=== PATIENT | male | born 1935 | race Caucasian/White ===

== ENCOUNTER 2022-06-29 16:26 | Inpatient (IN) ==
[2022-06-29] MEDS ORDERED: ALBUTEROL 2.5 MG/3 ML NEB RESP TX STA (17:28)
[2022-06-29] MEDS ORDERED: methylPREDNISolone SOD SUC 40 MG/1 ML VIAL IV STA (17:39)
[2022-06-29 17:57] LABS: Basophils # 0.1 10*3/uL (0.0-0.2); Basophils % 0.7 % (0.0-0.8); Eosinophils # 0.3 10*3/uL (0.0-0.87); Eosinophils % 2.6 % (0.00-10.9); Hemoglobin 14.5 GM/DL (14.0-18.0); Immature Granulocytes % 0.3 %; Immature Granulocytes Absolute 0.03 #; Lymphocytes # 1.7 10*3/uL (1.4-4.0); Mean Corpuscular Volume 82.6 FL (87-102); Mean Platelet Volume 10.6 FL (9.6-12.0); Monocytes # 0.7 10*3/uL (0.11-0.8); Monocytes % 6.7 % (1.7-12.7); Neutrophils % 72.7 % (38.7-73.9); Platelet Count 217 T/CUMM (130-400); Red Blood Count 5.33 MC/CUMM (3.8-5.5); Red Cell Distribution Width 15.6 % (9.3-17.3)
[2022-06-29 18:00] LABS: Arterial Base Excess iSTAT -6 MMOL/L (-2.5-2.5); Arterial Bicarbonate iSTAT 17.5 MMOL/L (20-26); Arterial O2 Saturation iSTAT 94 % (95-100); Arterial PCO2 iSTAT 29 MM HG (35-48); Arterial PO2 iSTAT 68 MM HG (80-95); Arterial Total CO2 iSTAT 18 MMO/L (23-27); Arterial pH iSTAT 7.392 (7.35-7.45)
[2022-06-29 18:17] LABS: Albumin 3.6 G/DL (3.4-5.0); Bilirubin,Total 1.1 MG/DL (0.20-1.00); Calcium 8.8 MG/DL (8.5-10.1); Osmolality,Calculated 277.5 MOS/KG (273-304); Potassium 3.7 MMOL/L (3.5-5.1); Total Protein 7.5 G/DL (6.4-8.2)
[2022-06-29 18:20] LABS: Platelet Estimate Adequate
[2022-06-29] MEDS ORDERED: cefTRIAXone 1,000 MG in SODIUM CHLORIDE 0.9% 100 ML IV STA (18:34)
[2022-06-29] MEDS ORDERED: AZITHROMYCIN INJ 500 MG in SODIUM CHLORIDE 0.9% 250 ML IV STA (18:34)
[2022-06-29] MEDS ORDERED: FUROSEMIDE 40 MG/4 ML VIAL IV STA (18:59)
[2022-06-29] MEDS ORDERED: ALBUTEROL 2.5 MG/3 ML NEB RESP TX PRN (21:20)
[2022-06-29] MEDS ORDERED: LOPERAMIDE 2 MG CAPSULE PO PRN (22:13)
[2022-06-29] MEDS: HEPARIN 5,000 UNIT/1 ML VIAL SUBCUT SCH (23:08)
[2022-06-29] MEDS: METOPROLOL TARTRATE 25 MG TABLET PO SCH (23:08)
[2022-06-30] MEDS: ALBUTEROL/IPRATROPIUM 3 ML NEB RESP TX SCH ×4 (01:50→20:09)
[2022-06-30] MEDS: methylPREDNISolone SOD SUC 40 MG/1 ML VIAL IV SCH ×3 (02:55→17:46)
[2022-06-30] MEDS: FUROSEMIDE 40 MG/4 ML VIAL IV SCH ×3 (02:55→17:46)
[2022-06-30 03:50] LABS: Basophils % 0.1 % (0.0-0.8); Immature Granulocytes % 0.5 %; Immature Granulocytes Absolute 0.07 #; Lymphocytes # 0.7 10*3/uL (1.4-4.0); Lymphocytes % 4.9 % (21.2-54.2); Mean Corpuscular HGB Conc 32.5 GM/DL (32-36); Mean Corpuscular Volume 83.2 FL (87-102); Mean Platelet Volume 10.4 FL (9.6-12.0); Monocytes # 0.3 10*3/uL (0.11-0.8); Monocytes % 1.8 % (1.7-12.7); Neutrophils % 92.7 % (38.7-73.9); Platelet Count 199 T/CUMM (130-400); Red Blood Count 4.81 MC/CUMM (3.8-5.5); Red Cell Distribution Width 15.6 % (9.3-17.3); White Blood Count 14.3 T/CUMM (4-12)
[2022-06-30 04:10] LABS: Lymphocytes 1 % (20-55); Platelet Estimate Adequate; Total Cells Counted 100
[2022-06-30 04:19] LABS: Calcium 8.7 MG/DL (8.5-10.1); Osmolality,Calculated 278.7 MOS/KG (273-304); Potassium 4.1 MMOL/L (3.5-5.1); Thyroid Stimulating Hormone 4.48 uIU/ml (0.358-3.74)
[2022-06-30] MEDS: HEPARIN 5,000 UNIT/1 ML VIAL SUBCUT SCH ×3 (06:18→21:40)
[2022-06-30] MEDS ORDERED: MELOXICAM 7.5 MG TABLET PO SCH (09:00)
[2022-06-30] MEDS: METOPROLOL TARTRATE 25 MG TABLET PO SCH ×2 (11:13→21:00)
[2022-06-30] MEDS: amLODIPine 5 MG TABLET PO SCH (11:13)
[2022-06-30] MEDS: PANTOPRAZOLE 40 MG TABLET PO SCH (11:13)
[2022-06-30] MEDS: methIMAzole 5 MG TABLET PO SCH (11:14)
[2022-06-30] MEDS: SERTRALINE 25 MG TABLET PO SCH (11:14)
[2022-06-30] MEDS: AZITHROMYCIN 250 MG TABLET PO SCH (17:46)
[2022-06-30] MEDS ORDERED: cefTRIAXone 1,000 MG in SODIUM CHLORIDE 0.9% 100 ML IV SCH (18:00)
[2022-06-30] MEDS ORDERED: POLYETHYLENE GLYCOL POWDER 17 GM PACK PO PRN (19:11)
[2022-06-30] MEDS: DOCUSATE SODIUM 100 MG CAPSULE PO SCH (21:40)
[2022-07-01] MEDS: ALBUTEROL/IPRATROPIUM 3 ML NEB RESP TX SCH ×5 (00:30→23:41)
[2022-07-01] MEDS: FUROSEMIDE 40 MG/4 ML VIAL IV SCH ×2 (01:45→10:36)
[2022-07-01] MEDS: methylPREDNISolone SOD SUC 40 MG/1 ML VIAL IV SCH ×2 (01:50→10:37)
[2022-07-01] MEDS ORDERED: PHENOL 1.4% THROAT SPRAY 177 ML BOTTLE PO PRN (02:20)
[2022-07-01] MEDS: HEPARIN 5,000 UNIT/1 ML VIAL SUBCUT SCH (05:33)
[2022-07-01 05:58] LABS: Basophils % 0.1 % (0.0-0.8); Hemoglobin 13.1 GM/DL (14.0-18.0); Immature Granulocytes % 0.8 %; Immature Granulocytes Absolute 0.11 #; Lymphocytes # 0.9 10*3/uL (1.4-4.0); Lymphocytes % 5.9 % (21.2-54.2); Mean Corpuscular HGB Conc 32.8 GM/DL (32-36); Mean Corpuscular Volume 83.5 FL (87-102); Mean Platelet Volume 10.7 FL (9.6-12.0); Monocytes # 0.3 10*3/uL (0.11-0.8); Monocytes % 1.8 % (1.7-12.7); Neutrophils % 91.4 % (38.7-73.9); Platelet Count 206 T/CUMM (130-400); Red Blood Count 4.79 MC/CUMM (3.8-5.5); Red Cell Distribution Width 15.4 % (9.3-17.3); White Blood Count 14.3 T/CUMM (4-12)
[2022-07-01 06:19] LABS: Calcium 8.9 MG/DL (8.5-10.1); Osmolality,Calculated 276.2 MOS/KG (273-304); Potassium 3.5 MMOL/L (3.5-5.1)
[2022-07-01 06:25] LABS: Lymphocytes 7 % (20-55); Myelocytes 1 %; Total Cells Counted 100
[2022-07-01 06:26] LABS: Platelet Estimate Normal
[2022-07-01] MEDS: SERTRALINE 25 MG TABLET PO SCH (09:24)
[2022-07-01] MEDS: amLODIPine 5 MG TABLET PO SCH (09:24)
[2022-07-01] MEDS: methIMAzole 5 MG TABLET PO SCH (09:24)
[2022-07-01] MEDS: PANTOPRAZOLE 40 MG TABLET PO SCH (09:24)
[2022-07-01] MEDS: METOPROLOL TARTRATE 25 MG TABLET PO SCH ×2 (09:24→22:16)
[2022-07-01] MEDS: DOCUSATE SODIUM 100 MG CAPSULE PO SCH ×2 (09:25→21:39)
[2022-07-01] MEDS ORDERED: ENOXAPARIN 40 MG/0.4 ML SYRINGE SUBCUT SCH (10:30)
[2022-07-01] MEDS ORDERED: methylPREDNISolone SOD SUC 40 MG/1 ML VIAL IV SCH (10:30)
[2022-07-01] MEDS: ENOXAPARIN 30 MG/0.3 ML SYRINGE SUBCUT SCH (10:46)
[2022-07-01] MEDS: AZITHROMYCIN 250 MG TABLET PO SCH (17:54)
[2022-07-02 06:24] LABS: Basophils % 0.1 % (0.0-0.8); Hematocrit 37.8 VOL% (42.0-52.0); Hemoglobin 12.2 GM/DL (14.0-18.0); Immature Granulocytes % 0.8 %; Lymphocytes # 0.4 10*3/uL (1.4-4.0); Lymphocytes % 3.2 % (21.2-54.2); Mean Corpuscular HGB Conc 32.3 GM/DL (32-36); Mean Corpuscular Volume 85.1 FL (87-102); Mean Platelet Volume 10.5 FL (9.6-12.0); Monocytes # 0.4 10*3/uL (0.11-0.8); Monocytes % 2.8 % (1.7-12.7); Neutrophils % 93.1 % (38.7-73.9); Platelet Count 178 T/CUMM (130-400); Red Blood Count 4.44 MC/CUMM (3.8-5.5); Red Cell Distribution Width 15.2 % (9.3-17.3)
[2022-07-02 06:42] LABS: Calcium 8.3 MG/DL (8.5-10.1); Osmolality,Calculated 280.2 MOS/KG (273-304); Potassium 3.5 MMOL/L (3.5-5.1)
[2022-07-02 07:11] LABS: Band Neutrophils 2 % (0-10); Lymphocytes 6 % (20-55); Total Cells Counted 100
[2022-07-02 07:12] LABS: Anisocytosis Slight; Burr Cells Few
[2022-07-02] MEDS: ALBUTEROL/IPRATROPIUM 3 ML NEB RESP TX SCH ×3 (07:44→19:12)
[2022-07-02] MEDS: methIMAzole 5 MG TABLET PO SCH (08:20)
[2022-07-02] MEDS: LEVOFLOXACIN 250 MG TABLET PO SCH (08:20)
[2022-07-02] MEDS: METOPROLOL TARTRATE 25 MG TABLET PO SCH ×2 (08:20→20:19)
[2022-07-02] MEDS: DOCUSATE SODIUM 100 MG CAPSULE PO SCH ×2 (08:20→20:20)
[2022-07-02] MEDS: predniSONE 20 MG TABLET PO SCH (08:20)
[2022-07-02] MEDS: amLODIPine 5 MG TABLET PO SCH (08:21)
[2022-07-02] MEDS: PANTOPRAZOLE 40 MG TABLET PO SCH (08:21)
[2022-07-02] MEDS: SERTRALINE 25 MG TABLET PO SCH (08:21)
[2022-07-02] MEDS ORDERED: FUROSEMIDE 20 MG TABLET PO SCH (09:00)
[2022-07-02] MEDS: ENOXAPARIN 30 MG/0.3 ML SYRINGE SUBCUT SCH (11:00)
[2022-07-02] MEDS: POLYETHYLENE GLYCOL POWDER 17 GM PACK PO SCH (20:20)
[2022-07-02] MEDS: SODIUM CHLORIDE 0.9% 1,000 ML IV SCH (20:29)
[2022-07-03] MEDS: ALBUTEROL/IPRATROPIUM 3 ML NEB RESP TX SCH ×3 (00:03→12:52)
[2022-07-03 06:42] LABS: Hematocrit 41.9 VOL% (42.0-52.0); Hemoglobin 13.5 GM/DL (14.0-18.0); Immature Granulocytes % 0.8 %; Lymphocytes # 0.9 10*3/uL (1.4-4.0); Lymphocytes % 7.4 % (21.2-54.2); Mean Corpuscular HGB Conc 32.2 GM/DL (32-36); Mean Corpuscular Volume 84.1 FL (87-102); Mean Platelet Volume 11.2 FL (9.6-12.0); Monocytes # 0.8 10*3/uL (0.11-0.8); Monocytes % 6.4 % (1.7-12.7); Neutrophils % 85.4 % (38.7-73.9); Platelet Count 201 T/CUMM (130-400); Red Blood Count 4.98 MC/CUMM (3.8-5.5); Red Cell Distribution Width 15.2 % (9.3-17.3); White Blood Count 11.9 T/CUMM (4-12)
[2022-07-03 06:57] LABS: Calcium 8.3 MG/DL (8.5-10.1); Osmolality,Calculated 285.5 MOS/KG (273-304); Potassium 3.5 MMOL/L (3.5-5.1)
[2022-07-03 07:50] LABS: Free T4 (Free Thyroxine) 0.7 NG/DL (0.76-1.46)
[2022-07-03] MEDS: METOPROLOL TARTRATE 25 MG TABLET PO SCH ×2 (08:31→20:46)
[2022-07-03] MEDS: SERTRALINE 25 MG TABLET PO SCH (08:31)
[2022-07-03] MEDS: DOCUSATE SODIUM 100 MG CAPSULE PO SCH (08:31)
[2022-07-03] MEDS: methIMAzole 5 MG TABLET PO SCH ×2 (08:31→15:55)
[2022-07-03] MEDS: predniSONE 20 MG TABLET PO SCH (08:31)
[2022-07-03] MEDS: LINACLOTIDE 145 MCG CAPSULE PO SCH (08:32)
[2022-07-03] MEDS: POLYETHYLENE GLYCOL POWDER 17 GM PACK PO SCH (08:32)
[2022-07-03] MEDS: LEVOFLOXACIN 250 MG TABLET PO SCH (08:32)
[2022-07-03] MEDS: ENOXAPARIN 30 MG/0.3 ML SYRINGE SUBCUT SCH (10:33)
[2022-07-03] MEDS: SODIUM CHLORIDE 0.9% 1,000 ML IV SCH ×2 (17:48→20:47)
[2022-07-04] MEDS: ALBUTEROL/IPRATROPIUM 3 ML NEB RESP TX SCH ×3 (07:12→19:48)
[2022-07-04] MEDS: METOPROLOL TARTRATE 25 MG TABLET PO SCH ×2 (09:23→21:51)
[2022-07-04] MEDS: POLYETHYLENE GLYCOL POWDER 17 GM PACK PO SCH (09:23)
[2022-07-04] MEDS: SERTRALINE 25 MG TABLET PO SCH (09:23)
[2022-07-04] MEDS: predniSONE 20 MG TABLET PO SCH (09:23)
[2022-07-04] MEDS: LEVOFLOXACIN 250 MG TABLET PO SCH (09:23)
[2022-07-04] MEDS: LINACLOTIDE 145 MCG CAPSULE PO SCH (10:24)
[2022-07-04] MEDS: ENOXAPARIN 30 MG/0.3 ML SYRINGE SUBCUT SCH (11:33)
[2022-07-04] MEDS ORDERED: TUBERCULIN SKIN TEST 0.1 ML SYRINGE INTRADERM ONE (15:37)
[2022-07-05] MEDS: ALBUTEROL/IPRATROPIUM 3 ML NEB RESP TX SCH ×4 (00:20→19:15)
[2022-07-05 05:29] LABS: Basophils % 0.2 % (0.0-0.8); Eosinophils # 0.1 10*3/uL (0.0-0.87); Eosinophils % 1.5 % (0.00-10.9); Hematocrit 41.3 VOL% (42.0-52.0); Hemoglobin 13.4 GM/DL (14.0-18.0); Immature Granulocytes % 1.1 %; Immature Granulocytes Absolute 0.09 #; Lymphocytes # 1.9 10*3/uL (1.4-4.0); Lymphocytes % 23.2 % (21.2-54.2); Mean Corpuscular HGB Conc 32.4 GM/DL (32-36); Mean Corpuscular Volume 83.6 FL (87-102); Mean Platelet Volume 10.4 FL (9.6-12.0); Monocytes # 0.6 10*3/uL (0.11-0.8); Monocytes % 6.8 % (1.7-12.7); Neutrophils % 67.2 % (38.7-73.9); Platelet Count 188 T/CUMM (130-400); Red Blood Count 4.94 MC/CUMM (3.8-5.5); White Blood Count 8.1 T/CUMM (4-12)
[2022-07-05 05:47] LABS: Calcium 8.2 MG/DL (8.5-10.1); Osmolality,Calculated 275.8 MOS/KG (273-304); Potassium 3.7 MMOL/L (3.5-5.1)
[2022-07-05] MEDS: LINACLOTIDE 145 MCG CAPSULE PO SCH (08:01)
[2022-07-05] MEDS: LEVOFLOXACIN 250 MG TABLET PO SCH (08:01)
[2022-07-05] MEDS: predniSONE 20 MG TABLET PO SCH (08:02)
[2022-07-05] MEDS: POLYETHYLENE GLYCOL POWDER 17 GM PACK PO SCH (08:02)
[2022-07-05] MEDS: SERTRALINE 25 MG TABLET PO SCH (08:02)
[2022-07-05] MEDS: METOPROLOL TARTRATE 25 MG TABLET PO SCH ×2 (08:02→20:27)
[2022-07-05] MEDS: ENOXAPARIN 30 MG/0.3 ML SYRINGE SUBCUT SCH (11:04)
[2022-07-05] MEDS: methIMAzole 5 MG TABLET PO SCH (14:33)
[2022-07-06] MEDS: ALBUTEROL/IPRATROPIUM 3 ML NEB RESP TX SCH ×4 (00:30→19:06)
[2022-07-06 05:57] LABS: Basophils % 0.2 % (0.0-0.8); Eosinophils # 0.4 10*3/uL (0.0-0.87); Eosinophils % 3.6 % (0.00-10.9); Hematocrit 42.9 VOL% (42.0-52.0); Hemoglobin 13.8 GM/DL (14.0-18.0); Lymphocytes # 2.3 10*3/uL (1.4-4.0); Lymphocytes % 22.8 % (21.2-54.2); Mean Corpuscular HGB Conc 32.2 GM/DL (32-36); Mean Corpuscular Volume 83.8 FL (87-102); Mean Platelet Volume 10.3 FL (9.6-12.0); Monocytes # 0.7 10*3/uL (0.11-0.8); Monocytes % 7.1 % (1.7-12.7); Neutrophils % 65.3 % (38.7-73.9); Platelet Count 203 T/CUMM (130-400); Red Blood Count 5.12 MC/CUMM (3.8-5.5); Red Cell Distribution Width 15.1 % (9.3-17.3)
[2022-07-06 06:20] LABS: Calcium 8.4 MG/DL (8.5-10.1); Osmolality,Calculated 277.7 MOS/KG (273-304); Potassium 3.7 MMOL/L (3.5-5.1)
[2022-07-06] MEDS: POLYETHYLENE GLYCOL POWDER 17 GM PACK PO SCH (10:47)
[2022-07-06] MEDS: SERTRALINE 25 MG TABLET PO SCH (10:48)
[2022-07-06] MEDS: predniSONE 20 MG TABLET PO SCH (10:49)
[2022-07-06] MEDS: METOPROLOL TARTRATE 25 MG TABLET PO SCH (10:49)
[2022-07-06] MEDS: LINACLOTIDE 145 MCG CAPSULE PO SCH (10:49)
[2022-07-06] MEDS: ENOXAPARIN 30 MG/0.3 ML SYRINGE SUBCUT SCH (10:49)
[2022-07-06] MEDS: LEVOFLOXACIN 250 MG TABLET PO SCH (10:49)
[2022-07-06] MEDS: carvediloL 3.125 MG TABLET PO SCH (22:15)
[2022-07-07] MEDS: ALBUTEROL/IPRATROPIUM 3 ML NEB RESP TX SCH ×5 (00:19→19:27)
[2022-07-07 05:53] LABS: Basophils % 0.2 % (0.0-0.8); Eosinophils # 0.2 10*3/uL (0.0-0.87); Eosinophils % 1.7 % (0.00-10.9); Hematocrit 41.3 VOL% (42.0-52.0); Hemoglobin 13.3 GM/DL (14.0-18.0); Immature Granulocytes % 0.8 %; Immature Granulocytes Absolute 0.09 #; Lymphocytes # 1.9 10*3/uL (1.4-4.0); Lymphocytes % 17.3 % (21.2-54.2); Mean Corpuscular HGB Conc 32.2 GM/DL (32-36); Mean Corpuscular Volume 83.8 FL (87-102); Mean Platelet Volume 10.2 FL (9.6-12.0); Monocytes # 0.7 10*3/uL (0.11-0.8); Platelet Count 206 T/CUMM (130-400); Red Blood Count 4.93 MC/CUMM (3.8-5.5); Red Cell Distribution Width 15.1 % (9.3-17.3)
[2022-07-07 06:15] LABS: Calcium 8.6 MG/DL (8.5-10.1); Osmolality,Calculated 280.5 MOS/KG (273-304); Potassium 3.7 MMOL/L (3.5-5.1)
[2022-07-07] MEDS: LINACLOTIDE 145 MCG CAPSULE PO SCH (08:28)
[2022-07-07] MEDS: carvediloL 3.125 MG TABLET PO SCH ×2 (09:44→21:00)
[2022-07-07] MEDS: SERTRALINE 25 MG TABLET PO SCH (09:44)
[2022-07-07] MEDS: POLYETHYLENE GLYCOL POWDER 17 GM PACK PO SCH (09:45)
[2022-07-07] MEDS: ENOXAPARIN 30 MG/0.3 ML SYRINGE SUBCUT SCH (09:45)
[2022-07-07] MEDS ORDERED: PANTOPRAZOLE 40 MG VIAL IV SCH (12:30)
[2022-07-07] MEDS: methIMAzole 5 MG TABLET PO SCH (16:18)
[2022-07-08] MEDS: ALBUTEROL/IPRATROPIUM 3 ML NEB RESP TX SCH ×4 (00:05→19:09)
[2022-07-08 05:27] LABS: Basophils % 0.1 % (0.0-0.8); Eosinophils # 0.5 10*3/uL (0.0-0.87); Eosinophils % 5.3 % (0.00-10.9); Hematocrit 39.3 VOL% (42.0-52.0); Hemoglobin 12.7 GM/DL (14.0-18.0); Immature Granulocytes % 0.9 %; Immature Granulocytes Absolute 0.08 #; Lymphocytes # 2.4 10*3/uL (1.4-4.0); Lymphocytes % 26.3 % (21.2-54.2); Mean Corpuscular HGB Conc 32.3 GM/DL (32-36); Mean Corpuscular Volume 84.5 FL (87-102); Mean Platelet Volume 10.6 FL (9.6-12.0); Monocytes # 0.8 10*3/uL (0.11-0.8); Monocytes % 8.4 % (1.7-12.7); Platelet Count 191 T/CUMM (130-400); Red Blood Count 4.65 MC/CUMM (3.8-5.5); Red Cell Distribution Width 15.2 % (9.3-17.3); White Blood Count 9.1 T/CUMM (4-12)
[2022-07-08 05:45] LABS: Calcium 8.3 MG/DL (8.5-10.1); Osmolality,Calculated 281.4 MOS/KG (273-304); Potassium 3.9 MMOL/L (3.5-5.1)
[2022-07-08] MEDS: POLYETHYLENE GLYCOL POWDER 17 GM PACK PO SCH (09:48)
[2022-07-08] MEDS: SERTRALINE 25 MG TABLET PO SCH (09:48)
[2022-07-08] MEDS: carvediloL 3.125 MG TABLET PO SCH ×2 (09:48→22:21)
[2022-07-08] MEDS: PANTOPRAZOLE 40 MG TABLET PO SCH ×2 (09:48→19:20)
[2022-07-08] MEDS: LINACLOTIDE 145 MCG CAPSULE PO SCH (09:48)
[2022-07-09] MEDS: ALBUTEROL/IPRATROPIUM 3 ML NEB RESP TX SCH ×4 (00:57→19:26)
[2022-07-09 04:54] LABS: Eosinophils # 0.4 10*3/uL (0.0-0.87); Eosinophils % 4.3 % (0.00-10.9); Hematocrit 38.1 VOL% (42.0-52.0); Hemoglobin 12.2 GM/DL (14.0-18.0); Immature Granulocytes % 0.8 %; Immature Granulocytes Absolute 0.07 #; Lymphocytes # 1.9 10*3/uL (1.4-4.0); Lymphocytes % 22.1 % (21.2-54.2); Mean Corpuscular Volume 84.5 FL (87-102); Mean Platelet Volume 10.8 FL (9.6-12.0); Monocytes # 0.9 10*3/uL (0.11-0.8); Monocytes % 10.5 % (1.7-12.7); Neutrophils % 62.3 % (38.7-73.9); Platelet Count 202 T/CUMM (130-400); Red Blood Count 4.51 MC/CUMM (3.8-5.5); White Blood Count 8.5 T/CUMM (4-12)
[2022-07-09 05:11] LABS: Calcium 8.4 MG/DL (8.5-10.1); Osmolality,Calculated 278.5 MOS/KG (273-304)
[2022-07-09] MEDS: LINACLOTIDE 145 MCG CAPSULE PO SCH (06:57)
[2022-07-09] MEDS: PANTOPRAZOLE 40 MG TABLET PO SCH ×2 (06:57→18:06)
[2022-07-09] MEDS: POLYETHYLENE GLYCOL POWDER 17 GM PACK PO SCH (09:11)
[2022-07-09] MEDS: SERTRALINE 25 MG TABLET PO SCH (09:11)
[2022-07-09] MEDS: carvediloL 3.125 MG TABLET PO SCH ×2 (09:11→20:35)
[2022-07-09] MEDS: methIMAzole 5 MG TABLET PO SCH (18:06)
[2022-07-10] MEDS: ALBUTEROL/IPRATROPIUM 3 ML NEB RESP TX SCH ×4 (00:08→19:14)
[2022-07-10] MEDS: PANTOPRAZOLE 40 MG TABLET PO SCH ×2 (08:59→20:58)
[2022-07-10] MEDS: LINACLOTIDE 145 MCG CAPSULE PO SCH (09:00)
[2022-07-10] MEDS: POLYETHYLENE GLYCOL POWDER 17 GM PACK PO SCH (09:00)
[2022-07-10] MEDS: SERTRALINE 25 MG TABLET PO SCH (09:00)
[2022-07-10] MEDS: carvediloL 3.125 MG TABLET PO SCH ×2 (09:00→20:59)
[2022-07-11] MEDS: ALBUTEROL/IPRATROPIUM 3 ML NEB RESP TX SCH ×4 (01:24→19:25)
[2022-07-11] MEDS: LINACLOTIDE 145 MCG CAPSULE PO SCH (09:43)
[2022-07-11] MEDS: SERTRALINE 25 MG TABLET PO SCH (09:43)
[2022-07-11] MEDS: carvediloL 3.125 MG TABLET PO SCH ×2 (09:43→20:35)
[2022-07-11] MEDS: PANTOPRAZOLE 40 MG TABLET PO SCH ×2 (09:43→20:35)
[2022-07-11] MEDS: POLYETHYLENE GLYCOL POWDER 17 GM PACK PO SCH (09:44)
[2022-07-11] MEDS: methIMAzole 5 MG TABLET PO SCH (14:43)
[2022-07-12] MEDS: ALBUTEROL/IPRATROPIUM 3 ML NEB RESP TX SCH ×3 (00:17→14:00)
[2022-07-12 09:06] VITALS: BP 117/50
[2022-07-12] MEDS: POLYETHYLENE GLYCOL POWDER 17 GM PACK PO SCH (09:43)
[2022-07-12] MEDS: LINACLOTIDE 145 MCG CAPSULE PO SCH (09:43)
[2022-07-12] MEDS: PANTOPRAZOLE 40 MG TABLET PO SCH (09:45)
[2022-07-12] MEDS: SERTRALINE 25 MG TABLET PO SCH (09:45)
[2022-07-12] MEDS: carvediloL 3.125 MG TABLET PO SCH (09:46)
== END 2022-07-12 14:06 | disposition home health service (06) | DRG 189 ==
LOC: EDUNIT# → EDBD → N.ED 16:26 → SUATTDRO 21:20 → N.EDINP 21:20 → N.ICU 21:46 → N.TELEN 07-03 16:49
PROVIDERS: ADMIT Family Medicine; ATTEND Emergency Medicine

== ENCOUNTER 2022-08-15 13:22 | Inpatient (IN) ==
[2022-08-15] MEDS ORDERED: ONDANSETRON 4 MG/2 ML VIAL IV STA (13:55)
[2022-08-15] MEDS ORDERED: HYDROmorphone 1 MG/1 ML SYRINGE IV STA (13:55)
[2022-08-15 14:52] LABS: Basophils % 0.2 % (0.0-0.8); Eosinophils # 0.1 10*3/uL (0.0-0.87); Eosinophils % 0.5 % (0.00-10.9); Hematocrit 44.1 VOL% (42.0-52.0); Hemoglobin 14.5 GM/DL (14.0-18.0); Immature Granulocytes % 0.8 %; Immature Granulocytes Absolute 0.13 #; Lymphocytes # 1.9 10*3/uL (1.4-4.0); Lymphocytes % 12.1 % (21.2-54.2); Mean Corpuscular HGB Conc 32.9 GM/DL (32-36); Mean Corpuscular Volume 82.4 FL (87-102); Mean Platelet Volume 10.6 FL (9.6-12.0); Monocytes # 0.7 10*3/uL (0.11-0.8); Monocytes % 4.5 % (1.7-12.7); Neutrophils % 81.9 % (38.7-73.9); Platelet Count 180 T/CUMM (130-400); Red Blood Count 5.35 MC/CUMM (3.8-5.5); Red Cell Distribution Width 15.4 % (9.3-17.3); White Blood Count 15.5 T/CUMM (4-12)
[2022-08-15 15:10] LABS: Albumin 3.3 G/DL (3.4-5.0); Bilirubin,Total 0.8 MG/DL (0.20-1.00); Calcium 9.1 MG/DL (8.5-10.1); Osmolality,Calculated 274.8 MOS/KG (273-304); Potassium 4.2 MMOL/L (3.5-5.1); Total Protein 7.5 G/DL (6.4-8.2)
[2022-08-15 15:15] LABS: INR 0.9; PT Patient Result 10.5 SECS (10.1-12.1); Partial Thromboplastin Time 23.1 SECS (23.7-32.9)
[2022-08-15] MEDS ORDERED: ACETAMINOPHEN 325 MG TABLET PO PRN (15:51)
[2022-08-15] MEDS ORDERED: ONDANSETRON 4 MG/2 ML VIAL IV PRN (15:51)
[2022-08-15] MEDS ORDERED: SODIUM CHLORIDE 0.9% 1,000 ML IV SCH (16:00)
[2022-08-15] MEDS ORDERED: hydrALAZINE 20 MG/1 ML VIAL IV PRN (16:07)
[2022-08-15] MEDS: MORPHINE 2 MG/1 ML SYRINGE IV PRN ×2 (16:11→20:45)
[2022-08-15 18:25] LABS: Arterial Base Excess iSTAT -5 MMOL/L (-2.5-2.5); Arterial Bicarbonate iSTAT 18.8 MMOL/L (20-26); Arterial O2 Saturation iSTAT 77 % (95-100); Arterial PCO2 iSTAT 32 MM HG (35-48); Arterial PO2 iSTAT 42 MM HG (80-95); Arterial Total CO2 iSTAT 20 MMO/L (23-27); Arterial pH iSTAT 7.372 (7.35-7.45)
[2022-08-15] MEDS ORDERED: FUROSEMIDE 40 MG/4 ML VIAL IV ONE (19:09)
[2022-08-15] MEDS: ALBUTEROL/IPRATROPIUM 3 ML NEB RESP TX SCH ×2 (19:35→23:57)
[2022-08-15] MEDS: methylPREDNISolone SOD SUC 40 MG/1 ML VIAL IV SCH (20:30)
[2022-08-15] MEDS: ENOXAPARIN 60 MG/0.6 ML SYRINGE SUBCUT SCH (20:33)
[2022-08-15] MEDS: cefTRIAXone 1,000 MG in SODIUM CHLORIDE 0.9% 100 ML IV SCH (20:45)
[2022-08-16] MEDS: MORPHINE 2 MG/1 ML SYRINGE IV PRN ×2 (02:10→23:35)
[2022-08-16] MEDS: ALBUTEROL/IPRATROPIUM 3 ML NEB RESP TX SCH ×6 (02:36→23:50)
[2022-08-16 05:05] LABS: Basophils % 0.1 % (0.0-0.8); Eosinophils % 0.1 % (0.00-10.9); Hematocrit 46.2 VOL% (42.0-52.0); Hemoglobin 15.1 GM/DL (14.0-18.0); Immature Granulocytes % 0.6 %; Immature Granulocytes Absolute 0.06 #; Lymphocytes # 0.8 10*3/uL (1.4-4.0); Lymphocytes % 8.7 % (21.2-54.2); Mean Corpuscular HGB Conc 32.7 GM/DL (32-36); Mean Corpuscular Volume 84.3 FL (87-102); Mean Platelet Volume 10.8 FL (9.6-12.0); Monocytes # 0.1 10*3/uL (0.11-0.8); Neutrophils % 89.5 % (38.7-73.9); Platelet Count 190 T/CUMM (130-400); Red Blood Count 5.48 MC/CUMM (3.8-5.5); Red Cell Distribution Width 15.6 % (9.3-17.3); White Blood Count 9.7 T/CUMM (4-12)
[2022-08-16 05:26] LABS: Albumin 3.2 G/DL (3.4-5.0); Bilirubin,Total 0.6 MG/DL (0.20-1.00); Calcium 9.4 MG/DL (8.5-10.1); Osmolality,Calculated 280.8 MOS/KG (273-304); Potassium 4.7 MMOL/L (3.5-5.1); Total Protein 7.6 G/DL (6.4-8.2)
[2022-08-16] MEDS ORDERED: ROCURONIUM 50 MG/5 ML VIAL IV ONE (08:27)
[2022-08-16] MEDS ORDERED: LIDOCAINE 2% 5 ML VIAL ONE (08:27)
[2022-08-16] MEDS ORDERED: propofoL 200 MG/20 ML VIAL IV ONE ×2 (08:27→10:25)
[2022-08-16] MEDS ORDERED: fentaNYL 100 MCG/2 ML VIAL ONE (08:27)
[2022-08-16] MEDS ORDERED: KETAMINE 500 MG/10 ML VIAL ONE (08:27)
[2022-08-16] MEDS ORDERED: SEVOFLURANE 1 UNIT/15 MINUTE INH ONE (08:30)
[2022-08-16] MEDS ORDERED: ROPIVACAINE 0.5% 30 ML VIAL ONE (08:36)
[2022-08-16] MEDS ORDERED: DEXAMETHASONE 4 MG/1 ML VIAL ONE (08:36)
[2022-08-16] MEDS ORDERED: ceFAZolin 2,000 MG/50 ML DUPLEX IV ONE (08:56)
[2022-08-16] MEDS ORDERED: PANTOPRAZOLE 40 MG VIAL IV SCH (09:00)
[2022-08-16] MEDS ORDERED: LACTATED RINGERS 1,000 ML IV SCH (09:30)
[2022-08-16] MEDS ORDERED: BUPIVACAINE MPF 0.5% 30 ML VIAL ONE (09:40)
[2022-08-16] MEDS ORDERED: buprenorphine HCL 0.3 MG/ML VIAL ONE (09:40)
[2022-08-16] MEDS ORDERED: PHENYLEPHRINE 1 MG/10 ML SYRINGE IV ONE (10:25)
[2022-08-16] MEDS ORDERED: SODIUM CHLORIDE 0.9% 250 ML IV ONE ×2 (10:25→10:30)
[2022-08-16] MEDS ORDERED: TRANEXAMIC ACID 1,000 MG/10 ML VIAL ONE (10:27)
[2022-08-16] MEDS ORDERED: PHENYLEPHRINE 10 MG/1 ML VIAL IV ONE (10:30)
[2022-08-16] MEDS ORDERED: MAGNESIUM HYDROXIDE SUSP 30 ML UDCUP PO PRN (10:49)
[2022-08-16] MEDS ORDERED: BISACODYL 10 MG SUPP RECTAL PRN (10:49)
[2022-08-16] MEDS ORDERED: diphenhydrAMINE CAP 25 MG CAPSULE PO PRN (10:49)
[2022-08-16] MEDS ORDERED: LACTULOSE 20 GM/30 ML UDCUP PO PRN (10:49)
[2022-08-16] MEDS ORDERED: ALBUTEROL 2.5 MG/3 ML NEB RESP TX PRN (10:52)
[2022-08-16] MEDS ORDERED: LINACLOTIDE 145 MCG CAPSULE PO PRN (10:52)
[2022-08-16] MEDS ORDERED: PROMETHAZINE 25 MG TABLET PO PRN (10:52)
[2022-08-16] MEDS: methylPREDNISolone SOD SUC 40 MG/1 ML VIAL IV SCH ×2 (12:32→21:47)
[2022-08-16] MEDS: ENOXAPARIN 60 MG/0.6 ML SYRINGE SUBCUT SCH ×2 (12:32→21:52)
[2022-08-16] MEDS: CYPROHEPTADINE 4 MG TABLET PO SCH ×3 (13:06→21:52)
[2022-08-16] MEDS: ceFAZolin 2,000 MG/50 ML DUPLEX IV SCH ×2 (15:08→23:24)
[2022-08-16] MEDS: PANTOPRAZOLE 40 MG TABLET PO SCH (17:03)
[2022-08-16] MEDS: carvediloL 3.125 MG TABLET PO SCH (17:03)
[2022-08-16] MEDS ORDERED: ALBUTEROL 1.25 MG/3 ML NEB RESP TX SCH (21:00)
[2022-08-16] MEDS: TAMSULOSIN 0.4 MG CAPSULE PO SCH (21:44)
[2022-08-16] MEDS: cefTRIAXone 1,000 MG in SODIUM CHLORIDE 0.9% 100 ML IV SCH (21:51)
[2022-08-16] MEDS: DOCUSATE SODIUM 100 MG CAPSULE PO SCH (21:52)
[2022-08-17] MEDS: ALBUTEROL/IPRATROPIUM 3 ML NEB RESP TX SCH ×6 (02:55→23:25)
[2022-08-17] MEDS ORDERED: METOPROLOL TARTRATE 5 MG/5 ML VIAL IV ONE (04:45)
[2022-08-17 05:26] LABS: Calcium 9.1 MG/DL (8.5-10.1); Osmolality,Calculated 293.4 MOS/KG (273-304); Potassium 4.1 MMOL/L (3.5-5.1)
[2022-08-17 05:37] LABS: Basophils % 0.1 % (0.0-0.8); Hematocrit 41.2 VOL% (42.0-52.0); Hemoglobin 13.4 GM/DL (14.0-18.0); Immature Granulocytes % 0.5 %; Immature Granulocytes Absolute 0.07 #; Lymphocytes % 6.6 % (21.2-54.2); Mean Corpuscular HGB Conc 32.5 GM/DL (32-36); Mean Corpuscular Volume 86.4 FL (87-102); Mean Platelet Volume 11.3 FL (9.6-12.0); Monocytes # 0.3 10*3/uL (0.11-0.8); Monocytes % 2.1 % (1.7-12.7); Neutrophils % 90.7 % (38.7-73.9); Platelet Count 180 T/CUMM (130-400); Red Blood Count 4.77 MC/CUMM (3.8-5.5); Red Cell Distribution Width 16.3 % (9.3-17.3); White Blood Count 14.9 T/CUMM (4-12)
[2022-08-17 05:52] LABS: Lymphocytes 3 % (20-55); Total Cells Counted 100
[2022-08-17 05:53] LABS: Hypochromia Slight; Microcytosis 1+
[2022-08-17 05:55] LABS: Ovalocytes Slight
[2022-08-17 05:56] LABS: Platelet Estimate Adequate
[2022-08-17] MEDS ORDERED: SODIUM CHLORIDE 0.9% 1,000 ML IV SCH (08:00)
[2022-08-17] MEDS ORDERED: MELOXICAM 7.5 MG TABLET PO SCH (09:00)
[2022-08-17] MEDS ORDERED: CYANOCOBALAMIN 1000 MCG/1 ML VIAL IM SCH (09:00)
[2022-08-17] MEDS: carvediloL 3.125 MG TABLET PO SCH ×2 (10:10→17:15)
[2022-08-17] MEDS: DOCUSATE SODIUM 100 MG CAPSULE PO SCH ×2 (10:10→20:56)
[2022-08-17] MEDS: CYPROHEPTADINE 4 MG TABLET PO SCH ×4 (10:10→20:57)
[2022-08-17] MEDS: SERTRALINE 25 MG TABLET PO SCH (10:10)
[2022-08-17] MEDS: PANTOPRAZOLE 40 MG TABLET PO SCH ×2 (10:10→17:14)
[2022-08-17] MEDS: SODIUM BICARBONATE 650 MG TABLET PO SCH ×2 (10:10→20:57)
[2022-08-17] MEDS: POLYETHYLENE GLYCOL POWDER 17 GM PACK PO SCH (10:10)
[2022-08-17] MEDS: methylPREDNISolone SOD SUC 40 MG/1 ML VIAL IV SCH ×2 (11:08→20:55)
[2022-08-17] MEDS: MORPHINE 2 MG/1 ML SYRINGE IV PRN ×2 (11:08→15:23)
[2022-08-17] MEDS ORDERED: FUROSEMIDE 40 MG/4 ML VIAL IV ONE (15:00)
[2022-08-17] MEDS: AZITHROMYCIN INJ 500 MG in SODIUM CHLORIDE 0.9% 250 ML IV SCH (15:23)
[2022-08-17 16:23] LABS: Bilirubin,Urine Negative (Negative); Blood, Urine Moderate mg/dL (Negative); Glucose,Urine (UA) Negative (Negative); Ketones,Urine Negative (Negative); Nitrite,Urine Negative (Negative); Protein,Urine 30 mg/dL (Negative); Urine Appearance Clear (Clear); Urine Color Yellow (Yellow); Urine Specific Gravity 1.025 (1.001-1.035); Urine Urobilinogen 0.2 eU/dL (<2.0); Urine pH 5.5 (4.5-8.0)
[2022-08-17 16:27] LABS: Bacteria,Urine Occasional /HPF (Few); Hyaline Casts,Urine 5 /LPF (0-3); Mucus,Urine Occasional /LPF (Occasional); RBC,Urine 7 /HPF (0-4); Squamous Epithelial Cell,Urine Occasional /HPF (0-10)
[2022-08-17] MEDS: cefTRIAXone 1,000 MG in SODIUM CHLORIDE 0.9% 100 ML IV SCH (20:54)
[2022-08-17] MEDS: TAMSULOSIN 0.4 MG CAPSULE PO SCH (20:57)
[2022-08-17] MEDS ORDERED: ENOXAPARIN 30 MG/0.3 ML SYRINGE SUBCUT SCH (21:00)
[2022-08-18] MEDS: ENOXAPARIN 60 MG/0.6 ML SYRINGE SUBCUT SCH (01:28)
[2022-08-18] MEDS: ALBUTEROL/IPRATROPIUM 3 ML NEB RESP TX SCH ×5 (03:46→19:12)
[2022-08-18 05:17] LABS: Basophils % 0.2 % (0.0-0.8); Hematocrit 42.6 VOL% (42.0-52.0); Hemoglobin 13.9 GM/DL (14.0-18.0); Immature Granulocytes % 0.7 %; Immature Granulocytes Absolute 0.09 #; Lymphocytes # 0.8 10*3/uL (1.4-4.0); Lymphocytes % 6.5 % (21.2-54.2); Mean Corpuscular HGB Conc 32.6 GM/DL (32-36); Mean Corpuscular Volume 85.2 FL (87-102); Mean Platelet Volume 10.4 FL (9.6-12.0); Monocytes # 0.6 10*3/uL (0.11-0.8); Monocytes % 4.4 % (1.7-12.7); Neutrophils % 88.2 % (38.7-73.9); Platelet Count 175 T/CUMM (130-400); White Blood Count 12.7 T/CUMM (4-12)
[2022-08-18 05:34] LABS: Calcium 9.5 MG/DL (8.5-10.1); Potassium 4.2 MMOL/L (3.5-5.1)
[2022-08-18] MEDS ORDERED: METOPROLOL TARTRATE 5 MG/5 ML VIAL IV ONE ×2 (08:03→08:06)
[2022-08-18] MEDS: MORPHINE 2 MG/1 ML SYRINGE IV PRN ×2 (08:05→14:38)
[2022-08-18 08:11] LABS: Arterial Base Excess iSTAT -2 MMOL/L (-2.5-2.5); Arterial Bicarbonate iSTAT 20.4 MMOL/L (20-26); Arterial O2 Saturation iSTAT 97 % (95-100); Arterial PCO2 iSTAT 27 MM HG (35-48); Arterial PO2 iSTAT 81 MM HG (80-95); Arterial Total CO2 iSTAT 21 MMO/L (23-27); Arterial pH iSTAT 7.486 (7.35-7.45)
[2022-08-18] MEDS ORDERED: DIAZEPAM 10 MG/2 ML SYRINGE IV PRN (08:29)
[2022-08-18] MEDS ORDERED: methIMAzole 5 MG TABLET PO SCH (09:00)
[2022-08-18] MEDS ORDERED: TUBERCULIN SKIN TEST 0.1 ML SYRINGE INTRADERM ONE (09:30)
[2022-08-18] MEDS: PANTOPRAZOLE 40 MG TABLET PO SCH (10:02)
[2022-08-18] MEDS: CYPROHEPTADINE 4 MG TABLET PO SCH (10:03)
[2022-08-18] MEDS: carvediloL 3.125 MG TABLET PO SCH (10:03)
[2022-08-18] MEDS: DOCUSATE SODIUM 100 MG CAPSULE PO SCH (10:03)
[2022-08-18] MEDS: POLYETHYLENE GLYCOL POWDER 17 GM PACK PO SCH (10:03)
[2022-08-18] MEDS: SODIUM BICARBONATE 650 MG TABLET PO SCH (10:03)
[2022-08-18] MEDS: SERTRALINE 25 MG TABLET PO SCH (10:04)
[2022-08-18] MEDS: methylPREDNISolone SOD SUC 40 MG/1 ML VIAL IV SCH (10:30)
[2022-08-18] MEDS: AZITHROMYCIN INJ 500 MG in SODIUM CHLORIDE 0.9% 250 ML IV SCH (16:32)
[2022-08-19] MEDS: MORPHINE 2 MG/1 ML SYRINGE IV PRN ×3 (00:59→13:34)
[2022-08-19] MEDS: ALBUTEROL/IPRATROPIUM 3 ML NEB RESP TX SCH ×5 (01:12→15:12)
[2022-08-19] MEDS ORDERED: predniSONE 20 MG TABLET PO SCH (09:00)
[2022-08-19 11:38] VITALS: BP 126/82
== END 2022-08-19 13:40 | disposition swing bed (61) | DRG 521 ==
LOC: EDBD → EDUNIT# → N.ED 13:22 → N.EDINP 15:51 → SUATTDRO 15:51 → N.3E 17:11 → N.EDINP 17:11
PROVIDERS: ADMIT Hospitalist; ATTEND Internal Medicine